=== PATIENT | male | born 1965 | race Caucasian/White ===

== ENCOUNTER 2018-06-16 10:34 | Emergency (ER) | payer OTHER ==
[2018-06-16 11:13] VITALS: BP 127/72
--- NOTE | 2018-06-16 11:24 | UC ---
Respiratory Complaint HPI - HPI Summary HPI Summary: 52yo male with PMH o GERD c/o having a fever since sunday06/10/18. He was seen here on 06/13/18 and told that it is probably viral illness. He was given an Rx for Amox that he had the choice to use or not. 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 He has 5 doses so far. C/o persistent fever, cough and wheezing. Last dose of ibuporfen 4.5hrs ago. - History of Current Complaint Chief Complaint: UCRespiratory Stated Complaint: FEVER Time Seen by Provider: 06/16/18 11:16 Hx Obtained From: Patient Onset/Duration: Gradual Onset, Lasting Days Severity Initially: Mild Severity Currently: Moderate Pain Intensity: 0 Character: Cough: Nonproductive Aggravating Factors: Allergens, Deep Breaths Alleviating Factors: Bronchodilator, Upright Position Associated Signs And Symptoms: Positive: Fever, Chills, URI, Nasal Congestion Related History: Seasonal Allergies - Risk Factors Pulmonary Embolism Risk Factors: Negative Cardiac Risk Factors: Negative Pseudomonas Risk Factors: Negative Tuberculosis Risk Factors: Negative - Allergies/Home Medications Allergies/Adverse Reactions: Allergies Allergy/AdvReac Type Severity Reaction Status Date / Time No Known Allergies Allergy Verified 06/16/18 11:13 PMH/Surg Hx/FS Hx/Imm Hx Respiratory History: Asthma GI/ History: Gastroesophageal Reflux - Surgical History Surgical History: Yes Surgery Procedure, Year, and Place: hernia repair. T&A - Family History Known Family History: Positive: Diabetes - Social History Alcohol Use: Occasionally Substance Use Type: None Smoking Status (MU): Never Smoked Tobacco Review of Systems Constitutional: Fever, Chills, Fatigue ENT: Negative, Sinus Congestion Respiratory: Cough Cardiovascular: Negative All Other Systems Reviewed And Are Negative: Yes Physical Exam Triage Information Reviewed: Yes Appearance: Well-Appearing, No Pain Distress, Well-Nourished Vital Signs: Initial Vital Signs Temp 97.8 F 06/16/18 11:05 Pulse 97 06/16/18 11:05 Resp 16 06/16/18 11:05 BP 127/72 06/16/18 11:05 Pulse Ox 97 06/16/18 11:05 Vital Signs Reviewed: Yes Eyes: Positive: Conjunctiva Clear ENT: Positive: Hearing grossly normal, Pharynx normal, TMs normal Neck: Positive: Supple, Nontender, No Lymphadenopathy Respiratory: Positive: Chest non-tender, Normal breath sounds, No respiratory distress, Rhonchi, Wheezing Cardiovascular: Positive: RRR, No Murmur, Pulses Normal, Brisk Capillary Refill Abdomen Description: Positive: Nontender Musculoskeletal: Positive: Strength Intact, ROM Intact, No Edema UC Diagnostic Evaluation - Laboratory O2 Sat by Pulse Oximetry: 97 Respiratory Course/Dx - Course Course Of Treatment: CXR reveals right middle and lower lobe pneumonia, to start antibiotic Levaquin and stop amoxil. Small improvement of peak flow with albuterol nebulization, start prednisone 60mg po daily for 5 days. F/u with PCP in 1 week. - Differential Dx/Diagnosis Provider Diagnoses: Community acquired pneumonia RML and RLL. Asthma exacerbation Discharge - Sign-Out/Discharge Documenting (check all that apply): Patient Departure All imaging exams completed and their final reports reviewed: Yes - Discharge Plan Condition: Stable Disposition: HOME Patient Education Materials: Asthma (ED), Prednisone (By mouth), Community Acquired Pneumonia (ED), Levofloxacin (By mouth) Referrals: No Primary Care Phys,NOPCP [Primary Care Provider] - [facility] [[facility]] - Billing Disposition and Condition Condition: STABLE Disposition: Home
[2018-06-16] MEDS ORDERED: Albuterol 2.5 MG/3 ML NEB.SOL* (0.083%) INH ONE (11:29)
--- NOTE | 2018-06-16 11:51 | RAD ---
INDICATION: Persistent cough. COMPARISON: Comparison is made with a prior study from February 10, 2005. TECHNIQUE: Dual-energy PA and lateral views of the chest were obtained. FINDINGS: Cardiac and mediastinal contours appear normal. There is a patchy infiltrate at the right lung base involving the middle and lower lobes most consistent with pneumonia. There is a trace right pleural effusion. The left lung appears clear. IMPRESSION: RIGHT MIDDLE AND LOWER LOBE INFILTRATES MOST CONSISTENT WITH PNEUMONIA.
== END 2018-06-16 12:10 | disposition home or self-care (01) ==
LOC: UCEAST 10:34
DX: J18.9 Pneumonia, unspecified organism (principal); J45.901 Unspecified asthma with (acute) exacerbation
CPT/HCPCS: 71046; 99213; G0463